=== PATIENT | male | born 1990 | race Caucasian/White ===

== ENCOUNTER 2019-01-25 18:27 | Inpatient (IN) ==
[2019-01-25] MEDS ORDERED: CLINDAMYCIN 900 MG in DEXTROSE 5% 100 ML IV ONE (18:42)
--- NOTE | 2019-01-25 19:32 | Emergency Department Note ---
Entered by Luis Silva acting as a scribe for History of Present Illness General Chief complaint: Infection Stated complaint: INFECTION, TRANSFER FROM [facility] Time Seen by Provider: 01/25/19 18:29 Source: patient, EMS and other (Transfer notes) Limitations: no limitations History of Present Illness Provider complaint: Right hand infection Onset (ago): hour(s) (12.5) Location: upper extremity (right wrist) and right Pain Consistency: + other (worsening pain, constant fever) Quality: + other (Fever/infection) Treatments prior to arrival: other (NSS, Fluid, vancomycin, Dilaudid, Zofran, Tylenol) The patient is a 28 year old diabetic male who presents to the Emergency Room via EMS from the [place] ER with complaints of worsening pain to his right hand/wrist and a fever that began this morning. The patient had his right ring finger amputated on 01/19, 6 days ago, here in [place] by Dr. Haddad. The patient has felt well since the procedure, aside from normal post-operative pain. He states that when he woke up this morning at 0600, 12.5 hours ago, he noticed the fever and significant "sharp" pain to the back of his right wrist. This pain was much worse than what he had been experiencing prior. He notes that when he checked the wrist/hand last night there was no redness. When he presented to the [place] ER today they removed the bandage there was redness and swelling over the hand and wrist. Dr. Haddad was contacted and the patient was referred here to the ED to be reevaluated. The patient adds that his heart was racing this morning and he did feel like he was breathing hard. He did vomit. He denies any acute shortness of breath. The patient has received 3 liters of fluid, 4.5 grams of Zosyn, 1 gram of IV-Vancomycin, as well as Dilaudid, Zofran, and 975 mg of Tylenol prior to arrival here. His laboratory studies today show a WBC of 20,000 and a Lactic Acid level of 7.8. Further laboratory results show hemoglobin of 15.2, platelet count of 449, creatinine of 1.27, potassium of 4.5, CRP of 12, and sed rate of 8. Home Medications Home Medications Medication Instructions Recorded Confirmed Type insulin glargine [Lantus U-100 40 unit SUBCUT HS 01/25/19 01/25/19 History Insulin] insulin lispro [Humalog U-100 See Rx Instructions .ROUTE .COMPLEX 01/25/19 01/25/19 History Insulin] omega 2-yfy-dyj-fish oil [Paradis-3] 1 cap PO QAM 01/25/19 01/25/19 History Allergies Allergy/AdvReac Type Severity Reaction Status Date / Time No Known Allergies Allergy Verified 01/25/19 19:07 Past Med/Surg History Medical History Amputation of right ring finger Diabetes Social History Communication Ability: Effective current occupational status: employed Feels Safe at Home: Yes Smoking Status: Never smoker Review of Systems See HPI for pertinent positives & negatives. and A total of 10 systems reviewed and were otherwise negative Physical Exam Vital Signs Vital Signs - 24 hr 01/25/19 18:27 01/25/19 18:38 01/25/19 18:42 Temperature 37.2 C Temperature Source Oral Sepsis Recent Fever Within 48 Hours Yes Sepsis New/Unexplained Change in Mental Status No Sepsis Action Taken by Nursing Physician Notified Pulse Rate 89 86 88 Pulse Rate from SpO2 Sensor 86 87 Pulse Rhythm Regular Pulse Strength Normal Respiratory Rate 18 16 20 Respiratory Effort / Characteristics Non-Labored Spontaneous Respiratory Depth Normal Respiratory Pattern Regular Blood Pressure 132/77 132/77 Blood Pressure Mean 95 95 Pulse Oximetry 98 98 97 Oxygen Delivery Method Room Air 01/25/19 19:00 Temperature Temperature Source Sepsis Recent Fever Within 48 Hours Sepsis New/Unexplained Change in Mental Status Sepsis Action Taken by Nursing Pulse Rate 87 Pulse Rate from SpO2 Sensor 86 Pulse Rhythm Pulse Strength Respiratory Rate 13 Respiratory Effort / Characteristics Respiratory Depth Respiratory Pattern Blood Pressure 121/69 Blood Pressure Mean 86 Pulse Oximetry 97 Oxygen Delivery Method GENERAL: Patient is in no acute distress. HEENT: No acute trauma, normocephalic atraumatic, mucous membranes moist, no nasal congestion, no scleral icterus. NECK: No stridor, no adenopathy, no meningismus, trachea is midline. LUNGS: Clear to auscultation bilaterally, no wheeze, no rhonchi, breath sounds equal. HEART: 2/6 systolic ejection murmur. Regular rate and rhythm. ABDOMEN: Soft, nontender, bowel sounds positive, no hernias, no peritonitis. EXTREMITIES: The right upper extremity is edematous, erythematous, and warm to the touch. Sutures are in place in the area where his 4th finger was amputated. The erythema tracks from the fingers mid-way up the forearm, mostly along the dorsal aspect. Patient is NVI distally in the right upper extremity. NEUROLOGIC: Oriented x 3, no acute motor or sensory deficits, no focal weakness. SKIN: No jaundice, no diaphoresis. Course 1829: The patient was evaluated in room B6, and a complete history and physical examination were performed. 1855: I discussed the case with Dr. Iggy BRANDON. She re-told the story to me today. 1899: I updated Dr. Haddad on the case. He will come to the ED to see the patient. 1915: I reviewed the patient's case with Dr. Petty [facility] Hospitalist. He will evaluate the patient for further management. Administered Medications Discontinued Medications Hydromorphone HCl (Dilaudid) Confirm Administered Dose 0.5 mg .ROUTE .STK-MED ONE Stop: 01/25/19 19:36 Last Admin: 01/25/19 19:36 Dose: 0.5 mg Documented by: [id number] Clindamycin Phosphate 900 mg/ (Dextrose) 106 mls @ 100 mls/hr IV ONE ONE Stop: 01/25/19 19:45 Last Admin: 01/25/19 19:16 Dose: 100 mls/hr Documented by: [id number] Medical Decision Making Differential Diagnosis Differential Diagnosis includes: Sepsis, bacteremia, cellulitis, wound infection, dehydration, electrolyte or metabolic abnormality, anemia, and renal failure. Medical Records Attestation: I reviewed the patient's medical records. Home Medications Current Medication List: was personally reviewed by me Laboratory Data Attestation: I reviewed the patient's lab results. Lab Results 01/25/19 01/25/19 Range/Units 18:45 19:11 POC Glucose 106 H (70-99) Lactate 2.8 H* (0.4-2.0) mmol/L Blood Pressure Blood Pressure Findings: Normal blood pressure MDM Narrative The patient presents from [place] for a right upper extremity wound infection. He did have his right fourth finger amputated on the , 6 days ago. He awoke this morning with pain, fever, vomiting and went to the [place] ED. Patient was diagnosed with sepsis. His white blood cell count was 20,000, his lactic acid level was elevated at over 7. He was tachycardic and febrile. The patient received IV vancomycin and IV Zosyn prior to arrival. He did receive Dilaudid for pain. He received around 3 L of fluid in total. On presentation to our ED, the patient looks comfortable. He is not tachycardic, he is not hypotensive. The right hand and forearm do appear to be cellulitic. There is some edema and warmth and erythema. The patient received IV clindamycin, 900 mg-this makes for triple antibiotic coverage. A stat BSG was done, the value was 106. Repeat lactic acid level was not done. The value was 2.8. This is significantly improved from the value obtained in [place]. I did speak with Dr. Haddad of orthopedics. I spoke with case management, I talked with the patient. Hospitalization is required. The on-call hospitalist was consulted. Impression & Plan Sepsis, Cellulitis of arm, right, Leukocytosis, Wound infection Discharge Plan Visit Data Chief Complaint: Infection Stated Complaint: INFECTION, TRANSFER FROM [facility] ED Provider: Drake Kebede Discharge Problem: Sepsis, Cellulitis of arm, right, Leukocytosis, Wound infection Patient Disposition: Being Evaluated by Hospitalist Forms Stand Alone Forms: My [facility] Prescriptions Prescriptions: No Action Lantus U-100 Insulin 100 unit/mL Solution 40 unit SUBCUT HS RF: 0 insulin lispro [Humalog U-100 Insulin] 100 unit/mL Solution See Rx Instructions .ROUTE .COMPLEX RF: 0 Paradis-3 350 mg-235 mg- 90 mg-597 mg Capsule,Delayed Release(Dr/Ec) 1 cap PO QAM RF: 0 Referrals Referrals: PCP,NO [Primary Care Provider] - Discharge Problem: Sepsis Qualifiers: Sepsis type: sepsis due to unspecified organism Qualified Code(s): A41.9 - Sepsis, unspecified organism Leukocytosis Qualifiers: Leukocytosis type: unspecified Qualified Code(s): D72.829 - Elevated white blood cell count, unspecified The scribe's documentation has been prepared under my direction and personally reviewed by me in its entirety. I confirm that the note above accurately reflects all work, treatment, procedures, and medical decision making performed by me.
[2019-01-25] MEDS ORDERED: HYDROmorphone INJ 0.5 MG/0.5 ML SYR ONE (19:35)
--- NOTE | 2019-01-25 19:46 | History & Physical Report ---
Date of Service January 25, 2019 Assessment & Plan (1) Sepsis: Sepsis/postop wound infection of right hand and arm-- Admit to medical telemetry bed. N.p.o. for procedure in the a.m. Sutures opened with culture performed by Dr. Yoder in the ED. Received 2 L normal saline in the ED. Placed on NSS + KCl 20 mEq at 200 mils per hour. Vancomycin IV and Zosyn IV. Follow wound culture and sensitivity. Acetaminophen 1 g IV every 8 hours as needed mild pain or temperature. Dilaudid 1 mg IV every 3 hours as needed severe pain. Present on Admission?: Yes (2) Cellulitis of arm, right: See above. Present on Admission?: Yes (3) Wound infection: See above. Present on Admission?: Yes (4) Diabetes mellitus type 1: Hold evening Lantus 42 units as patient will not be eating much tonight, and in prep for OR tomorrow. Place on Accu-Cheks before meals and at bedtime with NovoLog coverage per scale. Present on Admission?: Yes (5) GERD (gastroesophageal reflux disease): Placed on pantoprazole 40 mg IV daily. Present on Admission?: Yes History of Present Illness Chief Complaint: The patient [facility] to the ED [facility] s/p right 4th finger amputation by Dr. Yoder 6 days ago. Primary Care Provider: NO PCP The patient is a 28 yo male with a PMH including DM Type I , GERD, and Duputyren's contracture, s/p release x 2 , who underwent a right 4th finger amputation by Dr. Yoder 6 days ago, had been doing well until this morning, when he developed redness, pain and swelling of his right hand and wrist. [facility], was noted to be infected, and was transferred to [facility] at the request of for further treatment. The patient primaril complains of pain, with some nausea at this time. Allergies Allergy/AdvReac Type Severity Reaction Status Date / Time No Known Allergies Allergy Verified 01/25/19 19:07 Home Medications Home Medications Medication Instructions Recorded Confirmed Type insulin glargine [Lantus U-100 40 unit SUBCUT HS 01/25/19 01/25/19 History Insulin] insulin lispro [Humalog U-100 See Rx Instructions .ROUTE .COMPLEX 01/25/19 01/25/19 History Insulin] omega 2-cdn-kry-fish oil [[place]-3] 1 cap PO QAM 01/25/19 01/25/19 History Past Med/Surg History Medical History Amputation of right ring finger Diabetes Social History Preferred Language: Tam[place] Beliefs That Will Affect Care: None Current Living Situation: Family Current Living Situation Comment: with uncle current occupational status: employed Other Information That Helps Us Care for You: No Feels Safe at Home: Yes Safety Concerns: Feels Safe At This Time Smoking Status: Never smoker Hx Alcohol Use: Yes Review of Systems The patient denies chest pain, palpitations, shortness of breath, dyspnea on exertion, cough, lower extremity swelling, sore throat, sweats, weight change, nausea, vomiting, diarrhea , constipation, abdominal pain, pelvic pain, blood in urine or stool, dysuria, urinary frequency or urgency, lightheadedness, dizziness, headache, memory loss, loss of consciousness, imbalance, generalized arthralgias or myalgias, back or neck pain, or night sweats. The review of systems is otherwise negative other than for that already noted above, and at least 10 systems have been reviewed. Physical Exam Vital Signs (Past 24 Hours): Last Vital Signs Temp 37.2 C 01/25/19 18:27 Pulse 87 01/25/19 19:00 Resp 13 01/25/19 19:00 BP 121/69 01/25/19 19:00 Pulse Ox 97 01/25/19 19:00 Physical Exam: The patient is awake, alert and oriented 3, well developed and well nourished, normocephalic and atraumatic, lying in bed and in no acute distress. HEENT--PERRL, EOMI, mucous membranes and oropharynx dry. Neck--supple. No JVD. No bruits. Thyroid normal, trachea midline, no adenopathy. Heart--normal S1 and S2. No murmurs, rubs or gallops. Lungs--clear bilaterally, no respiratory distress, no accessory muscle use. Abdomen--normal bowel sounds and soft. Nontender. Nondistended, no hernias or masses, no organomegaly. Extremities--no cyanosis or clubbing. No edema. Right upper extremity status post right fourth finger amputation with erythema extending from surgical site on dorsum of hand and wrist to distal forearm Dermatologic--normal skin turgor, normal color, no abnormal lymph nodes, no rash. Neurologic--cranial nerves II through XII grossly intact. Rheumatologic--normal range of motion. Psychiatric--normal affect. Results & Data Laboratory Results Laboratory Results Creatinine 0.94 mg/dl (0.6-1.4) 01/25/19 21:54 Est Cr Clr Drug Dosing 130.7 ml/min 01/25/19 21:54 Est GFR ( Amer) 129.2 01/25/19 21:54 Est GFR (Non-Af Amer) 111.5 01/25/19 21:54 POC Glucose 71 (70-99) 01/25/19 21:31 Lactate 2.8 mmol/L (0.4-2.0) H* 01/25/19 19:11 Code Status & VTE Plan Code Status Full code VTE Prophylaxis Plan VTE Prophylaxis will be ordered: Yes (1) Sepsis Sepsis type: sepsis due to unspecified organism Qualified Code(s): A41.9 - Sepsis, unspecified organism
[2019-01-25] MEDS ORDERED: ONDANSETRON INJ 2 MG/ML 2 ML VIAL ONE (21:02)
[2019-01-25] MEDS ORDERED: PIPERACILL/TAZOBAC CONSULT ACTIVE PRN (21:25)
[2019-01-25] MEDS ORDERED: ZOLPIDEM TARTRATE 5 MG TAB PO PRN (21:25)
[2019-01-25] MEDS ORDERED: DEXTROSE 50% 50 ML SYRINGE IV PRN (21:25)
[2019-01-25] MEDS ORDERED: LANTUS PER UNIT CHARGE SQ SCH (21:25)
[2019-01-25] MEDS ORDERED: GLUCOSE 40% GEL 15 GM TUBE PO PRN (21:25)
[2019-01-25] MEDS ORDERED: INSULIN ASPART 100 UNITS/ML 3 ML PEN SC SCH (21:25)
[2019-01-25] MEDS ORDERED: DiphenhydrAMINE HCL 50 MG/ML VIAL IV PRN (21:25)
[2019-01-25] MEDS ORDERED: VANCOMYCIN CONSULT ACTIVE PRN (21:25)
[2019-01-25] MEDS ORDERED: GLUCAGON FOR INJ 1 MG VIAL SQ PRN (21:25)
[2019-01-25] MEDS ORDERED: VANCOMYCIN HCL 1,000 MG in SODIUM CHLORIDE 0.9% 250 ML IV SCH (21:25)
[2019-01-25] MEDS ORDERED: VANCOMYCIN HCL 2,000 MG in SODIUM CHLORIDE 0.9% 500 ML IV SCH (22:00)
[2019-01-25] MEDS ORDERED: PIPERACILLIN/TAZOBACTAM 4.5 GM in DEXTROSE 5% 100 ML IV SCH (22:00)
[2019-01-25] MEDS: ACETAMINOPHEN 325 MG TAB PO PRN (22:06)
[2019-01-25] MEDS: NSS + 20MEQ KCL 20 MEQ/1,000 ML BAG IV SCH (22:23)
[2019-01-25 22:27] LABS: Creatinine Clr Calc Pharmacy 130.7 ml/min; Est GFR (African American) 129.2; Est GFR (Non-African American) 111.5
[2019-01-25] MEDS: ACETAMINOPHEN 1,000 MG/100 ML VIAL IV PRN (23:28)
--- NOTE | 2019-01-26 01:45 | Consultation Report ---
DATE OF CONSULTATION: 01/25/2019 Special attention to right hand. HISTORY OF PRESENT ILLNESS: This is a 28-year-old gentleman who is known to me. I performed a ray amputation approximately 6 days ago. He woke up this morning with increasing pain and swelling in the hand. This began without any incident or trauma. He did note increasing fever and chills and increasing nausea and vomiting. He called our office and we recommended he go to the nearest Emergency Department. He went to the [place] Emergency Department. He was diagnosed with infection and sepsis. I requested transfer to [facility] for further care. The patient does meet sepsis criteria. MEDICATIONS: Include Lantus, Humalog, and fish oil. ALLERGIES: No known allergies. PAST MEDICAL HISTORY: Diabetes, history of recent amputation for recurrent Dupuytren's disease. PHYSICAL EXAMINATION: EXTREMITIES: Right hand exam does show significant swelling in the dorsal aspect of the hand. Redness is seen suspicious for infection. He is tender over the infection site. He can flex and extend the wrist with moderate discomfort. He has negative [place] signs. Minimal volar swelling. He does have some streaking erythema which is improved compared to the prior gonzalez made in [place] ER. LABORATORY STUDIES: White count 20. Lactic acid 7.8 at [facility] Emergency [facility]. Current white count at [facility] is 2. Sed rate 8, CRP 12. ASSESSMENT: 1. Right hand infection and abscess. 2. Diabetes. PLAN: I discussed findings and treatment with him. We will admit to the hospitalist service under telemetry and monitor vital signs for sepsis. His vital signs are stabilized in the interim with fluids and antibiotics. He was given Zosyn in the Emergency Department in [place]. Vancomycin was added here. I examined his surgical incision and it is currently clean and dry. I popped 3 of the dorsal stitches and this did express a moderate amount of pus. This did help to decompress the wound and there were also improvements in his pain. We will plan for definitive irrigation and debridement with likely application of VAC sponge shortly. Risks and benefits of surgery were discussed including, but not limited to, infection, stiffness, loss of motion, failure to improve, etc. Plan for surgical intervention shortly.
[2019-01-26] MEDS: PIPERACILLIN/TAZOBACTAM 3.375 GM in DEXTROSE 5% 100 ML IV SCH ×3 (01:58→18:42)
[2019-01-26] MEDS ORDERED: NURSING DECISION MEDICATION ONE (02:18)
[2019-01-26] MEDS: NSS + 20MEQ KCL 20 MEQ/1,000 ML BAG IV SCH ×3 (03:01→19:36)
[2019-01-26] MEDS: VANCOMYCIN HCL 1,250 MG in SODIUM CHLORIDE 0.9% 250 ML IV SCH ×3 (05:59→20:26)
[2019-01-26] MEDS ORDERED: INSULIN ASPART 100 UNITS/ML 3 ML PEN SC SCH ×2 (06:00→13:00)
[2019-01-26] MEDS ORDERED: PHARMACY GLYCEMIC MGMT CONSULT PRN (07:49)
[2019-01-26 08:30] LABS: Basophils # (auto) 0.02 K/uL (0-0.2); Basophils % (auto) 0.1 %; Eosinophils # (auto) 0.24 K/uL (0-0.5); Eosinophils % (auto) 1.5 %; Hemoglobin 12.7 g/dL (14.0-18.0); Immature Granulocytes # (auto) 0.04 K/uL (0.00-0.02); Immature Granulocytes % (auto) 0.2 %; Lymphocytes % (auto) 11.9 %; Mean Corpuscular Hgb Conc 33.4 g/dL (32-36); Mean Corpuscular Volume 82.8 fL (80-100); Mean Platelet Volume 10.2 fL (7.4-10.4); Monocytes # (auto) 1.54 K/uL (0.11-0.59); Monocytes % (auto) 9.6 %; Neutrophils # (auto) 12.29 K/uL (1.4-6.5); Neutrophils % (auto) 76.7 %; Platelet Count 332 K/uL (130-400); RDW Standard Deviation 42.4 fL (36.4-46.3); Red Blood Count 4.59 M/uL (4.7-6.1); White Blood Count 16.03 K/uL (4.8-10.8)
[2019-01-26 08:49] LABS: BUN Creatinine Ratio 12.5 (10-20); Calcium 7.9 mg/dl (8.5-10.1); Creatinine Clr Calc Pharmacy 120.5 ml/min; Magnesium 2.2 mg/dl (1.8-2.4); Potassium 4.1 mmol/L (3.5-5.1)
[2019-01-26] MEDS ORDERED: INSULIN HUMAN REGULAR IV BOLUS 2 UNITS in SYRINGE 0 ML IV SCH (09:45)
[2019-01-26] MEDS ORDERED: INSULIN GLARGINE SOLOSTAR 100 UNITS/ML 3 ML PEN SC SCH (10:00)
[2019-01-26] MEDS ORDERED: INSULIN REGULAR 250 UNITS in SODIUM CHLORIDE 0.9% 247.5 ML IV SCH (10:00)
[2019-01-26] MEDS: ACETAMINOPHEN 1,000 MG/100 ML VIAL IV PRN (10:17)
[2019-01-26] MEDS ORDERED: ALUMINUM/MAGNESIUM SUSP 30 ML UDC PO PRN (10:35)
[2019-01-26] MEDS ORDERED: VANCOMYCIN TROUGH ONE ×2 (12:30→19:30)
--- NOTE | 2019-01-26 13:22 | Hospitalist Progress Note ---
Date of Service January 26, 2019 Assessment & Plan (1) Wound infection: Had a ray amputation of his right 4th finger on 01/19 at Counts include [facility] beds at the [facility]. Done due to issues with Dupuytren's contractures. Post-op wound infection of right hand and arm. - Sutures opened with culture performed by Dr. Haddad in the ED - Plan for I&D on 01/26 - Continue vancomycin IV and Zosyn IV - Follow wound culture and sensitivity - Pain and fever control (2) Cellulitis of arm, right: - See above. (3) Sepsis: On admission, he had SIRS 2/4 with known source. - Resolving on abx therapy (4) Diabetes mellitus type 1: No known A1c. On admission, evening Lantus 42 units was held; however, as a Type 1 diabetic, he has to have long-acting to prevent ketoacidosis. - Placed on insulin gtt on 01/26 as he is NPO, blood sugars are getting out of control, and we are worried about complications. - Glycemic consult following - A1c in the morning (5) GERD (gastroesophageal reflux disease): - Placed on pantoprazole 40 mg IV daily. (6) DVT prophylaxis: SCDs Subjective 28yo w/ DM1 and hand infection who presents with worsening hand infection. Pretty discouraged from his continued hand infection. Reports no fevers/chills, chest pain, shortness of breath, abdominal pain, nausea, or vomiting. Review of Systems Constitutional: no fever, no chills and no sweats Eyes: no diplopia Ear, Nose, Mouth, Throat: no ear trauma, no nasal discharge and no dental pain Respiratory: no cough, no chest congestion and no dyspnea Cardiovascular: no chest pain, no dyspnea on exertion, no palpitations and no syncope Gastrointestinal: no abdominal pain, no belching, no constipation, no diarrhea/loose stools, no blood in stools and no melena Musculoskeletal: no back pain, no joint pain and no muscle weakness Integumentary: no rash, no skin ulcer and no erythema Neurologic: no generalized weakness, no loss of sensation, no numbness and no paresthesia Psychiatric: no depression and no anxiety Endocrine: no fatigue, no polydipsia and no polyphagia Physical Exam Constitutional: WD/WN, vitals as above Eyes: EOM intact bilaterally; no conjunctival abnormality ENMT: external ear and nose normal, oropharynx normal Neck: trachea midline, no thyromegaly normal visual inspection Respiratory: normal respiratory effort, lungs clear to auscultation no respiratory distress Cardiovascular: RRR, no murmur, no edema Gastrointestinal (Abdomen): Inspection/Auscultation: abdomen normal to inspection; abdomen not distended Musculoskeletal: no cyanosis or clubbing, extremities motor strength 5/5 Skin: Right hand bandaged with minimal erythema past bandage Neurologic: moves all extremities and awake Psychiatric: Orientation: alert, oriented to person and cooperative Results & Data Vital Signs (Past 12 Hours) Vital Signs Temp Pulse Resp BP Pulse Ox 01/26/19 11:04 37.0 C 73 16 106/59 L 96 01/26/19 07:18 36.5 C 78 16 115/68 96 01/26/19 03:38 36.5 C 79 18 98/59 L 97 (1) Sepsis Sepsis type: sepsis due to unspecified organism Qualified Code(s): A41.9 - Sepsis, unspecified organism
--- NOTE | 2019-01-26 15:00 | Pharmacy Report ---
Glycemic Control Consultation - Date of Service January 26, 2019 - Scope Scope: Glycemic Pharmacist consulted for glycemic control and to write orders per [facility] inpatient glycemic control protocol - Objective Weight: 90.1 kg Accuchecks BSG (last 24hrs): 01/25/19 01/25/19 01/26/19 18:45 21:31 05:54 Glucose POC Glucose 106 H 71 285 H 01/26/19 08:03 Glucose 280 H POC Glucose Laboratory Data (last 24hrs): 01/25/19 01/26/19 21:54 08:03 Potassium 4.1 Carbon Dioxide 22 Anion Gap 7.0 Creatinine 0.94 1.02 Est Cr Clr Drug Dosing 130.7 120.5 - Recent Pertinent Medications Outpatient Anti-diabetic Regimen: * Discussed with patient and confirmed the following * Lantus 40 units SC HS * Humalog AC - correction factor of 30 mg/dL/unit above BSG of 130 mg/dL, carb ratio of 6 g CHO/unit * A1c pending for tomorrow Risk Factors for Insulin Resistance: * Steroids: * Infection: Sepsis 2nd post-op wound infection/cellulitis * Recent Surgery: Plan for I&D today * Diet: NPO - Assessment & Plan Assessment & Plan: ASSESSMENT: * 28 yo M with TYPE 1 diabetes admitted with sepsis 2nd post-op wound infection * Home Lantus dose held last night for NPO status and possible intervention, but this can quickly precipitate DKA for a patient with Type 1 diabetes. CO2 wnl this AM, but BSG trended up rapidly from 71 mg/dL yesterday evening to 285 mg/dL this AM * Based on a delay in basal insulin x12 hours and therefore basal deficiency, will not be able to adequately control BSG's in the immediate preop period without a drip. Spoke w Dr. Oliver who agreed with starting a drip * Would normally decrease basal insulin dose to 80% of outpatient dose for a Type 1 diabetes patient for NPO status. However, will not do so at this time 2nd basal deficiency (which would usually necessitate a higher that outpatient dose). OK to give outpatient Lantus dose now. Will attempt to transition back to HS dosing gradually * Criteria for insulin drip transition * Insulin drip rate less than 1.0 units/hr * BSG in goal range x2 consecutive checks * Once patient meets criteria for drip transition, will resume home rapid-acting insulin regimen with 2 overnight checks PLAN FOR INPATIENT GLYCEMIC CONTROL: * Starting IV insulin infusion per moderate stress protocol * Goal Range 120 - 180 mg/dl * In the critical care setting, continuous IV insulin infusion has been shown to be the best method for achieving glycemic targets. * Basal insulin * Lantus 40 units SQ x1 now * Bolus insulin * NovoLog per scale ACHS depending on CHO ratio per insulin drip calculator * Please note that the plan above was derived based on current level of insulin resistance and hospital stress. These recommendations are appropriate for inpatient admission only. Plan of care upon discharge will need to be reassessed to avoid potential outpatient hypo/hyperglycemia. Thank you.
--- NOTE | 2019-01-26 15:02 | Anesthesiology Consultation ---
Date of Service January 26, 2019 Assessment & Plan Chart Review Chart Review: Acceptable Risk for Surgery and Patient NOT seen in Pre Admission Testing Consults Requested none ASA ASA3 Proposed Anesthesia Anesthesia Type: General Regional Regional Laterality: Right Site: Supraclavicular Risk / Benefits Reviewed With: PT / POA / Parent / Guardian, Accepts Plan and Informed Consent Obtained NPO Date Last Intake of Fluids: 01/25/19 Time Last Intake of Fluids: 23:59 Date Last Intake of Solids: 01/25/19 Time Last Intake of Solids: 23:59 Last Intake of Solids Comment: NPO at midnight History Surgery Operation Date: 01/26/19 14:00 Proposed Procedures p Incision and Drainage Extremity(Right) - Pedro Haddad MD Height/Weight Height: 6 ft Weight: 90.1 kg Allergies Allergy/AdvReac Type Severity Reaction Status Date / Time No Known Allergies Allergy Verified 01/26/19 14:55 Medications Home Medications Medication Instructions Recorded Confirmed Last Taken insulin glargine [Lantus U-100 40 unit SUBCUT HS 01/25/19 01/25/19 01/24/19 Insulin] insulin lispro [Humalog U-100 See Rx Instructions .ROUTE .COMPLEX 01/25/19 01/25/19 01/25/19 Insulin] AM DOSE - 3 UNITS omega 1-rxr-ppn-fish oil [[place]-3] 1 cap PO QAM 01/25/19 01/25/19 01/25/19 Active Medications Generic Name Dose Route Start Last Admin Trade Name Freq PRN Reason Stop Dose Admin Acetaminophen 650 mg 01/25/19 21:25 01/25/19 22:06 Tylenol PO 02/24/19 21:24 650 mg Q4H PRN Administration Pain or Fever Al Hydrox/Mg Hydrox/Simethicone 30 ml 01/26/19 10:35 01/26/19 10:51 Maalox PO 02/25/19 10:34 30 ml Q6H PRN Administration Heartburn Acetaminophen 1,000 mg in 100 mls @ 400 mls/hr 01/25/19 21:25 01/26/19 10:37 Ofirmev IV 02/24/19 21:24 Infused Q8H PRN Infusion Pain or Fever Potassium Chloride/Sodium Chloride 20 meq in 1,000 mls @ 75 mls/hr 01/25/19 21:45 01/26/19 12:10 Normal Saline W/20 Meq Kcl IV 02/24/19 21:44 75 mls/hr .[id number] HERVE Infusion Piperacillin Sod/Tazobactam 115 mls @ 28.75 mls/hr 01/26/19 02:00 01/26/19 14:55 Sod 3.375 gm/ Dextrose IV 03/09/19 01:59 Infused Q8H HERVE Infusion Protocol Vancomycin HCl 1,250 mg/ 275 mls @ 125 mls/hr 01/26/19 06:00 01/26/19 13:05 Sodium Chloride IV 03/09/19 05:59 125 mls/hr Q7H HERVE Administration Insulin Human Regular 250 250 mls @ 2.2 mls/hr 01/26/19 10:00 01/26/19 10:53 units/ Sodium Chloride IV 02/25/19 09:59 2.2 units/hr .Q24H HERVE 2.2 mls/hr Administration Protocol 2.2 UNITS/HR Insulin Aspart 0 units 01/26/19 13:00 01/26/19 13:05 Novolog Flexpen SC 02/25/19 12:59 [facility] Past Medical History Medical History Amputation of right ring finger Diabetes Past Anesthesia History No Hx of Anesthesia Complications and No Family Hx of Anesthesia Complications History of PONV No Motion Sickness Screening History of Motion Sickness: No Social History Smoking Status: Never smoker Hx Alcohol Use: Yes alcohol intake frequency: holidays/special occasions only Exercise / Class Metabolic Activity II 4-5 Yardwork/Stairs/Walk up hill Physical Exam Vital Signs Last Vital Signs Temp 37.0 C 01/26/19 11:04 Pulse 73 01/26/19 11:04 Resp 16 01/26/19 11:04 BP 106/59 L 01/26/19 11:04 Pulse Ox 96 01/26/19 11:04 ENMT Mouth: no dentition abnormality Thyromental Distance: > or= 3.5 Finger Breadths Mallampati Class: II Neck normal visual inspection and + tracheal deviation; neck extension not limited Respiratory normal respiratory effort Auscultation: lungs clear to auscultation bilaterally Cardiovascular Rate/Rhythm: regular rate and regular rhythm Heart Sounds: no murmur Musculoskeletal Spine: normal cervical ROM Neurologic moves all extremities Motor/Sensory: no sensory deficit Psychiatric Orientation: alert and oriented x 3 Testing Laboratory Results 01/26/19 08:03 01/26/19 08:03 01/25/19 20:20 Gram Stain - Final Hand,Right Wound Culture - Preliminary Staphylococcus aureus 01/26/19 05:54 POC Glucose 285 H
--- NOTE | 2019-01-26 15:06 | Pharmacy Report ---
Pharmacy Abx Dose Short Note - Date of Service January 26, 2019 - Assessment & Plan Assessment * 28 year old M with sepsis 2nd post-op wound infection/cellulitis growing S. aureus (sensitivities pending) * Currently on Zosyn and vancomycin. Appropriate for now * Anticipate rapid clearance of vancomycin 2nd gender and young age * SCr may be slightly higher than usual for age. I suspect this is not reflective of renal dysfunction but rather increased *production* of creatinine from large muscle mass Vancomycin * Goal vancomycin trough 15-20 mcg/mL * Trough of 13.8 mcg/mL is slightly subtherapeutic. However, this was obtained prior to steady state and therefore anticipate accumulation given the tight interval selected for maintenance dosing for this patient (q7h) * OK to continue current dose for now but will re-check an early level to ensure level does indeed increase to therapeutic levels Plan * Continue vancomycin 1250 mg IV q7h * Trough 01/27 @ 0230 Pharmacy will continue to follow and will adjust dose/frequency as necessary. Thank you.
[2019-01-26] MEDS ORDERED: BUPIVACAINE 0.25% 30 ML VIAL ONE (15:40)
[2019-01-26] MEDS ORDERED: BACITRACIN INJ 50,000 UNIT VIAL ONE (15:41)
[2019-01-26] MEDS ORDERED: MIDAZOLAM HCL 1 MG/ML 2ML VIAL ONE (15:42)
[2019-01-26] MEDS ORDERED: fentaNYL citrate 100 MCG/2 ML VIAL ONE ×2 (15:43→16:41)
--- NOTE | 2019-01-26 15:46 | History & Physical Bridge Note ---
Date of Service January 26, 2019 History & Physical Bridge Note I have examined the patient, reviewed the History & Physical and in the interval since the performance of the History & Physical I have noted the following changes of clinical significance: no changes noted I saw the patient in preoperative holding area we discussed risk benefits possible outcomes and expectations will plan for 1. Right hand irrigation and debridement
[2019-01-26] MEDS ORDERED: [UNRECOGNIZED DRUG - OTHER] SCH (16:00)
[2019-01-26] MEDS ORDERED: LIDOCAINE HCL 2% 2 ML VIAL/AMP(20MG/ML) INFIL ONE (16:40)
[2019-01-26] MEDS ORDERED: PROPOFOL IV EMULSION 10 MG/ML 20 ML VIAL IV ONE (16:40)
[2019-01-26] MEDS ORDERED: GLYCOPYRROLATE 0.2 MG/ML VIAL ONE (16:40)
[2019-01-26] MEDS ORDERED: ONDANSETRON INJ 2 MG/ML 2 ML VIAL ONE (16:40)
[2019-01-26] MEDS ORDERED: NEOSTIGMINE METHYLSULFATE 5 MG/5 ML SYR ONE (16:40)
--- NOTE | 2019-01-26 17:04 | Post Operative Brief Note ---
Immediate Post Op Note v1 Date of Surgery January 26, 2019 Pre & Post Diagnosis Operation Date: 01/26/19 14:00 Pre-Op Diagnosis: infection right hand Post-Op Diagnosis: infection right hand Procedure Operation Date: 01/26/19 14:00 Actual Procedures p Incision and Drainage right hand and application of wound vac (Right) - Gonzalezi kip Haddad MD Surgeon Pedro Haddad MD Cloth Doubling Machine Operator none Estimated Blood Loss 5 Findings Consistent with Post-Op Diagnosis
[2019-01-26] MEDS ORDERED: PROMETHAZINE HCL 12.5 MG in SODIUM CHLORIDE 0.9% 50 ML IV PRN (17:28)
[2019-01-26] MEDS ORDERED: LABETALOL HCL IV 5 MG/ML 20ML IV PRN (17:28)
[2019-01-26] MEDS ORDERED: ONDANSETRON INJ 2 MG/ML 2 ML VIAL IV PRN (17:28)
[2019-01-26] MEDS ORDERED: ATROPINE SULFATE 0.1 MG/ML 10ML SYR IV PRN (17:28)
[2019-01-26] MEDS ORDERED: FLUMAZENIL 0.1 MG/1 ML 10 ML VIAL IV PRN (17:28)
[2019-01-26] MEDS ORDERED: NALOXONE HCL 0.4 MG/1 ML VIAL/CARP IV PRN (17:28)
[2019-01-26] MEDS ORDERED: ePHEDrine sulfate 50 MG/ML AMP IV PRN (17:28)
[2019-01-26] MEDS: HYDROmorphone INJ 1 MG/ML SYRINGE IV PRN ×3 (17:33→17:47)
--- NOTE | 2019-01-26 18:05 | Anesthesiology Progress Note ---
Date of Service January 26, 2019 Anesthesia Post Procedure Vital Signs Vital Signs: Temp Pulse Pulse Pulse Resp BP BP 01/26/19 17:50 78 14 118/63 01/26/19 17:40 76 12 120/67 01/26/19 17:30 84 19 113/66 01/26/19 17:20 79 15 115/63 01/26/19 17:12 36.8 C 77 16 110/59 L 01/26/19 11:04 37.0 C 73 16 106/59 L 01/26/19 07:18 36.5 C 78 16 115/68 01/26/19 03:38 36.5 C 79 18 98/59 L 01/25/19 23:56 93 H 01/25/19 23:00 36.3 C L 94 H 18 131/79 01/25/19 21:50 37 C 18 137/82 01/25/19 20:00 88 12 132/69 01/25/19 19:20 86 15 121/69 01/25/19 19:00 87 13 121/69 01/25/19 18:42 88 20 01/25/19 18:38 86 16 132/77 01/25/19 18:27 37.2 C 89 18 132/77 Pulse Ox 01/26/19 17:50 96 01/26/19 17:40 98 01/26/19 17:30 100 01/26/19 17:20 100 01/26/19 17:12 100 01/26/19 11:04 96 01/26/19 07:18 96 01/26/19 03:38 97 01/25/19 23:56 01/25/19 23:00 98 01/25/19 21:50 100 01/25/19 20:00 97 01/25/19 19:20 98 01/25/19 19:00 97 01/25/19 18:42 97 01/25/19 18:38 98 01/25/19 18:27 98 Pain Intensity Right Finger: Pain Intensity: 5 Notes Mental Status: alert / awake / arousable Patient Amnestic to Procedure: Yes Nausea / Vomiting: adequately controlled Pain: adequately controlled Airway Patency, RR, SpO2: stable & adequate BP & HR: stable & adequate Hydration State: stable & adequate Anesthetic Complications: no major complications apparent
[2019-01-26] MEDS: INSULIN ASPART 100 UNITS/ML 3 ML PEN SC SCH ×2 (19:33→21:55)
[2019-01-26] MEDS: ACETAMINOPHEN 325 MG TAB PO PRN (21:59)
[2019-01-27] MEDS: PIPERACILLIN/TAZOBACTAM 3.375 GM in DEXTROSE 5% 100 ML IV SCH ×2 (02:04→10:34)
[2019-01-27] MEDS: HYDROmorphone INJ 1 MG/ML SYRINGE IV PRN ×3 (02:09→16:19)
[2019-01-27] MEDS ORDERED: VANCOMYCIN TROUGH ONE (02:30)
[2019-01-27] MEDS: VANCOMYCIN HCL 1,250 MG in SODIUM CHLORIDE 0.9% 250 ML IV SCH ×2 (02:31→10:34)
[2019-01-27 02:46] LABS: Hematocrit (blood only) 34.2 % (42-52); Hemoglobin 11.4 g/dL (14.0-18.0); Mean Corpuscular Hgb Conc 33.3 g/dL (32-36); Mean Corpuscular Volume 83.2 fL (80-100); Mean Platelet Volume 9.8 fL (7.4-10.4); Platelet Count 338 K/uL (130-400); RDW Coefficient of Variation 14.2 % (11.5-14.5); RDW Standard Deviation 43.3 fL (36.4-46.3); Red Blood Count 4.11 M/uL (4.7-6.1); White Blood Count 16.32 K/uL (4.8-10.8)
[2019-01-27 02:59] LABS: BUN Creatinine Ratio 11.4 (10-20); Calcium 7.8 mg/dl (8.5-10.1); Creatinine Clr Calc Pharmacy 155.5 ml/min; Est GFR (African American) 143.6; Est GFR (Non-African American) 123.9; Magnesium 2.2 mg/dl (1.8-2.4); Potassium 3.5 mmol/L (3.5-5.1)
[2019-01-27 03:19] LABS: Phosphorus 1.5 mg/dl (2.5-4.9)
[2019-01-27 06:18] LABS: Estimated Average Glucose 255 mg/dl; Hemoglobin A1C 10.5 % (4.5-5.6)
--- NOTE | 2019-01-27 07:58 | Operative Report ---
DATE OF OPERATION: 01/25/2019 PREOPERATIVE DIAGNOSIS: Right hand infection. POSTOPERATIVE DIAGNOSIS: Right hand infection. PROCEDURES: 1. Right hand irrigation and debridement of infection. 2. Right hand application of VAC sponge. SURGEON: Waqar Haddad MD [employer] SKIN: None. ANESTHESIA: General. INDICATIONS: This is a gentleman who is approximately 7 days status post ray amputation, presents with increasing pain and swelling in the hand and sepsis. He presents for irrigation and debridement with application of VAC. The risks and benefits have been discussed including, but not limited to, risk of infection, nerve injury, stiffness, loss of motion, failure to improve, etc. Reasonable outcomes and options of treatment were discussed. An explanation of appropriate alternatives to the procedure that may be advantageous were discussed and their risks and benefits, as well as the risks and benefits of not proceeding with treatment. I offered to answer any additional inquiries concerning the treatment involved. All the patient's questions were answered. The patient is agreeable, understanding of the treatment plan and alternatives, and wishes to proceed with the treatment plan. DESCRIPTION OF PROCEDURE: The patient's open wound was inspected. I removed dorsal stitches and left the volar stitches intact. Very small amount of gross purulence was encountered, mostly in the superficial region. I performed a debridement of skin, subcutaneous tissue and bone, removing any devitalized muscle fascia and subcutaneous tissue. I debrided the bone as well with a curette. There did not appear to be any osteomyelitis or evidence of flexor tenosynovitis. There was no infection of the flexor tendon system. Area was copiously irrigated with 3 liters of bacitracin impregnated normal saline initially with pulse lavage. A tourniquet was let down, hemostasis was obtained with bipolar cautery. The area was then inspected and debridement did result in a clean wound. Debridement area was approximately a 2 x 4 cm. I then closed the distal aspect of the dorsal incision and the left 1-inch area of the proximal incision open. I placed a VAC sponge, a single piece into the wound and this was tunneled slightly under the incision. The VAC was applied and this was placed on suction without significant leak. The patient was placed in a soft dressing over the VAC sponge and the patient was sent to PACU in stable condition. Postoperative plan will be continued antibiotics, monitor cultures which do show staph aureus infection. I attest to the content of the Intraoperative Record and any orders documented therein. Any exceptions are noted below. MTDD
--- NOTE | 2019-01-27 08:39 | Infectious Disease Consult ---
Date of Consultation January 27, 2019 Assessment & Plan (1) Cellulitis of arm, right: Patient with right hand and arm infection following fourth finger amputation with staph aureus, sensitivities pending. Would continue patient on IV vancomycin pending sensitivity results. Will adjust antibiotics once these are available. Will follow. (2) Wound infection: (3) Staph aureus infection: History of Present Illness Reason for Consultation: Hand infection Attending Physician: Fermin Oliver MD History of Present Illness 28-year-old male with history of diabetes mellitus underwent amputation of right ring finger January 19 at [facility]. Subsequently developed progressively worsening redness, swelling, and pain with fever and chills and was brought back to the hospital for wound infection. He is now undergone surgical debridement and placement of wound VAC. Cultures now growing staph aureus, sensitivities are pending. Patient currently being treated with vancomycin and Zosyn. Tolerating without apparent difficulty. Has been afebrile. Allergies Allergy/AdvReac Type Severity Reaction Status Date / Time No Known Allergies Allergy Verified 01/26/19 14:55 Home Medications Home Medications Medication Instructions Recorded Confirmed Type insulin glargine [Lantus U-100 40 unit SUBCUT HS 01/25/19 01/25/19 History Insulin] insulin lispro [Humalog U-100 See Rx Instructions .ROUTE .COMPLEX 01/25/19 01/25/19 History Insulin] omega 4-syg-twf-fish oil [[place]-3] 1 cap PO QAM 01/25/19 01/25/19 History Patient History Medical History Amputation of right ring finger Diabetes Social History Preferred Language: French Communication Ability: Effective Beliefs That Will Affect Care: None marital status: Single Current Living Situation: Family Current Living Situation Comment: with uncle current occupational status: employed Other Information That Helps Us Care for You: No Feels Safe at Home: Yes Safety Concerns: Feels Safe At This Time Smoking Status: Never smoker Hx Alcohol Use: Yes Review of Systems Review of Systems: All systems were reviewed and are negative except as per HPI Physical Exam Constitutional: WD/WN, vitals as above comfortable; no acute distress Eyes: PERRL, conjunctivae normal, anicteric sclerae ENMT: external ear and nose normal, oropharynx normal Neck: trachea midline, no thyromegaly neck nontender Respiratory: normal respiratory effort, lungs clear to auscultation normal percussion; does not use accessory muscles Cardiovascular: Rate/Rhythm: regular rate and regular rhythm Heart Sounds: normal S1 and normal S2; no gallop, no murmur and no cardiac rub Vessels: normal peripheral pulses; no JVD Gastrointestinal (Abdomen): normal bowel sounds, soft, nontender, no hepatosplenomegaly Musculoskeletal: no cyanosis or clubbing, extremities motor strength 5/5 Spine: thoracic spine normal to inspection and lumbar spine normal to inspection; no cervical spinal tenderness Skin: no rashes, warm and dry normal turgor Surgical dressing in place right hand, no significant erythema above dressing Neurologic: patellar DTR's 2+ bilat, sensation intact no focal motor deficits Psychiatric: A+Ox3, euthymic affect Orientation: cooperative Lymphatic: no cervical or axillary lymphadenopathy no inguinal lymphadenopathy Results & Data Vital Signs (Past 12 Hours) Vital Signs Temp Pulse Pulse Resp BP Pulse Ox 01/27/19 06:54 36.6 C 85 18 106/62 95 01/27/19 01:59 37.5 C 84 16 117/70 95 01/26/19 23:03 36.7 C 79 18 110/71 100 Laboratory Results Short CBC 01/27/19 Range/Units 02:22 WBC 16.32 H (4.8-10.8) K/uL Hgb 11.4 L (14.0-18.0) g/dL Hct 34.2 L (42-52) % Plt Count 338 (130-400) K/uL [facility] 01/26/19 01/27/19 08:03 02:22 Sodium 140 140 Potassium 4.1 3.5 Chloride 111 H 112 H Carbon Dioxide 22 25 BUN 13 9 Creatinine 1.02 0.79 Glucose 280 H 86 Calcium 7.9 L 7.8 L Diagnostic Findings Microbiology 01/26/19 Unknown Hand,Right Gram Stain - Final 01/25/19 20:20 Hand,Right Gram Stain - Final 01/25/19 20:20 Hand,Right Wound Culture - Preliminary Staphylococcus aureus
[2019-01-27] MEDS: INSULIN ASPART 100 UNITS/ML 3 ML PEN SC SCH ×4 (09:16→20:47)
--- NOTE | 2019-01-27 11:08 | Pharmacy Report ---
Pharmacy Abx Dose Short Note - Date of Service January 27, 2019 - Assessment & Plan Assessment 28 year old M receiving Vanc/Zosyn for treatment of sepsis 2nd post-op wound infection/cellulitis growing S. aureus Day # 3 of antimicrobial therapy Plan Vancomycin * Trough level of 13.6 mcg/mL is subtherapeutic * Increase dose to 1500 mg IV every 7 hours as patient is rapidly clearing vancomycin (possibly 2nd gender and young age) * Goal trough level: 15 to 20 mcg/mL * Trough level ordered for: 01/28 @0630 Pharmacy will continue to follow and will adjust dose/frequency as necessary. Thank you.
--- NOTE | 2019-01-27 11:49 | Orthopedic Progress Note ---
Date of Service January 27, 2019 Assessment & Plan (1) Infection of right hand: Continue IV vancomycin at this time. Continue wound VAC Dr. Wang's input appreciated and he will decide final antibiotic choice and duration. Plan for wound VAC change tomorrow. Subjective Postop day 1 status post Incision and Drainage right hand and application of wound vac Patient is currently sitting up in his chair at the bedside. Right hand is elevated on a few pillows. Wound VAC is on and functioning. There is a small amount of drainage noted in the canister. Patient has no overt complaints at this time. He was having pain earlier but was given IV Dilaudid and is doing better. We discussed that his culture came back MRSA. Physical Exam Physical Exam: Dressing is clean, dry, intact. He is able to move all 4 fingers. Capillary refill is less than 2 seconds. He has numbness and tingling in the fingers at this time. Results & Data Vital Signs (Past 12 Hours) Vital Signs Temp Pulse Resp BP Pulse Ox 01/27/19 06:54 36.6 C 85 18 106/62 95 01/27/19 01:59 37.5 C 84 16 117/70 95 Laboratory Results Microbiology 01/25/19 20:20 Hand,Right Gram Stain - Final 01/25/19 20:20 Hand,Right Wound Culture - Final Staph aureus MRSA 01/26/19 Unknown Hand,Right Gram Stain - Final 01/26/19 Unknown Hand,Right Aerobic and Anaerobic Culture - Preliminary Staphylococcus aureus Sensitivity results indicate a Methicillin-Resistant Staph aureus. Phoned to REBECCA MONTGOMERY on 01/27/19 at 0909 by Lana Holden. Results were verbalized back. MRSA RX M.I.C. --- --------- Clindamycin S <=0.5 Daptomycin S <=0.5 Erythromycin R >4 Oxacillin R >2 Rifampin S <=1 Tetracycline S <=4 Trimeth/Sulfa S <=0.5/9.5 Vancomycin S 1 S = SENSITIVE I = INTERMEDIATE R = RESISTANT
[2019-01-27] MEDS: NSS + 20MEQ KCL 20 MEQ/1,000 ML BAG IV SCH (11:59)
[2019-01-27] MEDS ORDERED: ONDANSETRON INJ 2 MG/ML 2 ML VIAL IV STA (13:30)
[2019-01-27] MEDS ORDERED: ONDANSETRON INJ 2 MG/ML 2 ML VIAL ONE (13:33)
[2019-01-27] MEDS ORDERED: INSULIN GLARGINE SOLOSTAR 100 UNITS/ML 3 ML PEN SC SCH (14:00)
--- NOTE | 2019-01-27 15:05 | Hospitalist Progress Note ---
Date of Service January 27, 2019 Assessment & Plan (1) Wound infection: Had a ray amputation of his right 4th finger on 01/19 at [facility]. Done due to issues with Dupuytren's contractures. Post-op wound infection of right hand and arm. - Sutures opened with culture performed by Dr. Haddad in the ED - I&D on 01/26 - Continue vancomycin IV - Zosyn stopped on 01/26 for Staph aureus in the wound - Follow wound culture and sensitivity - Pain and fever control (2) Cellulitis of arm, right: - See above. (3) Sepsis: On admission, he had SIRS 2/4 with known source. - Resolved on abx therapy (4) Diabetes mellitus type 1: A1c was 10.5% on admission. On admission, evening Lantus 42 units was held; however, as a Type 1 diabetic, he has to have long-acting to prevent ketoacidosis. - Placed on insulin gtt on 01/26 as he is NPO, blood sugars are getting out of control, and we are worried about complications. - Transitioned to basal insulin with sliding scale insulin after surgery - Glycemic consult following (5) GERD (gastroesophageal reflux disease): - Placed on pantoprazole 40 mg IV daily. (6) DVT prophylaxis: SCDs Subjective With hand pain and annoyed by the wound vac, but otherwise well. Reports no fevers/chills, chest pain, shortness of breath, abdominal pain, nausea, or vomiting. Review of Systems Constitutional: no fever, no chills and no sweats Eyes: no diplopia Ear, Nose, Mouth, Throat: no ear trauma, no nasal discharge and no dental pain Respiratory: no cough, no chest congestion and no dyspnea Cardiovascular: no chest pain, no dyspnea on exertion, no palpitations and no syncope Gastrointestinal: no abdominal pain, no belching, no constipation, no diarrhea/loose stools, no blood in stools and no melena Musculoskeletal: + joint pain (Hand); no back pain and no muscle weakness Integumentary: no rash, no skin ulcer and no erythema Neurologic: no generalized weakness, no loss of sensation, no numbness and no paresthesia Psychiatric: no depression and no anxiety Endocrine: no fatigue, no polydipsia and no polyphagia Physical Exam Constitutional: WD/WN, vitals as above Eyes: EOM intact bilaterally; no conjunctival abnormality ENMT: external ear and nose normal, oropharynx normal Neck: trachea midline, no thyromegaly normal visual inspection Respiratory: normal respiratory effort, lungs clear to auscultation no respiratory distress Cardiovascular: RRR, no murmur, no edema Gastrointestinal (Abdomen): Inspection/Auscultation: abdomen normal to inspection; abdomen not distended Musculoskeletal: no cyanosis or clubbing, extremities motor strength 5/5 Neurologic: moves all extremities and awake Psychiatric: Orientation: alert, oriented to person and cooperative Results & Data Vital Signs (Past 12 Hours) Vital Signs Temp Pulse Pulse Resp BP Pulse Ox 01/27/19 12:00 36.8 C 71 17 132/81 100 01/27/19 06:54 36.6 C 85 18 106/62 95 (1) Sepsis Sepsis type: sepsis due to unspecified organism Qualified Code(s): A41.9 - Sepsis, unspecified organism
--- NOTE | 2019-01-27 15:24 | Pharmacy Report ---
Pharmacy Glycemic Short Note 2 - Date of Service January 27, 2019 - Glycemic Short BSG Results (Last 24 hours): 01/26/19 01/26/19 01/26/19 08:01 10:49 10:49 Glucose POC Glucose 238 H 315 H* 315 H* 01/26/19 01/26/19 01/26/19 11:59 12:58 13:59 Glucose POC Glucose 262 H 212 H 181 H 01/26/19 01/26/19 01/26/19 15:35 17:12 18:24 Glucose POC Glucose 119 H 109 H 110 H 01/26/19 01/27/19 01/27/19 20:38 02:22 08:09 Glucose 86 POC Glucose 144 H 108 H 01/27/19 12:23 Glucose POC Glucose 109 H OUTPATIENT ANTIDIABETIC REGIMEN: * Lantus 40 units HS * Humalog CF 30 (BSG>130) insulin:CHO ratio is 1:6 ASSESSMENT: * Patient is a Type 1 diabetic * Placed on insulin gtt on 01/26 because he was NPO and blood sugars were on the rise. Patient's evening dose of lantus was held and drip was started to prevent ketoacidosis. * Transitioned to basal insulin with sliding scale insulin after surgery * Patient has had several sugars below the lower-end of current goal range. Will adjust range to target slightly higher sugars. PLAN FOR INPATIENT GLYCEMIC CONTROL: * Hold outpatient oral diabetes medications * Basal insulin * Lantus 40 units SQ x1 dose today @1320 * slowly moving dosing-time so it matches his home dose, which he takes in the evening * Bolus insulin * NovoLog per scale ACHS or Q6hrs while NPO * Goal Range: Low 120 mg/dL - High 160 mg/dL changed from 110-140 because the patient has had several sugars under goal * Correction Factor: 30 mg/dL/unit * Nutritional / Prandial insulin per carb ratio of 1 unit per 6 grams CHO consumed
[2019-01-27] MEDS ORDERED: VANCOMYCIN HCL 1,500 MG in SODIUM CHLORIDE 0.9% 250 ML IV SCH (17:00)
[2019-01-27] MEDS ORDERED: OXYCODONE/ACETAMINOPHEN 5mg/325mg TAB PO PRN (17:19)
[2019-01-27] MEDS ORDERED: ONDANSETRON INJ 2 MG/ML 2 ML VIAL IV PRN (17:30)
[2019-01-27] MEDS: POT PHOSPHATE MONOBASIC W/ SOD TAB PO SCH ×2 (17:38→20:39)
[2019-01-27] MEDS: VANCOMYCIN HCL 1,500 MG in SODIUM CHLORIDE 0.9% 500 ML IV SCH ×2 (17:38→23:58)
[2019-01-28] MEDS ORDERED: VANCOMYCIN TROUGH ONE (06:30)
[2019-01-28 07:01] LABS: Hematocrit (blood only) 35.8 % (42-52); Hemoglobin 11.7 g/dL (14.0-18.0); Mean Corpuscular Hgb Conc 32.7 g/dL (32-36); Mean Corpuscular Volume 83.8 fL (80-100); Mean Platelet Volume 9.8 fL (7.4-10.4); Platelet Count 399 K/uL (130-400); RDW Coefficient of Variation 13.9 % (11.5-14.5); RDW Standard Deviation 42.6 fL (36.4-46.3); Red Blood Count 4.27 M/uL (4.7-6.1); White Blood Count 14.25 K/uL (4.8-10.8)
[2019-01-28] MEDS: VANCOMYCIN HCL 1,500 MG in SODIUM CHLORIDE 0.9% 500 ML IV SCH ×2 (07:04→13:57)
[2019-01-28 07:33] LABS: BUN Creatinine Ratio 9.7 (10-20); Calcium 8.6 mg/dl (8.5-10.1); Creatinine Clr Calc Pharmacy 163.8 ml/min; Est GFR (African American) 146.7; Est GFR (Non-African American) 126.6; Magnesium 2.3 mg/dl (1.8-2.4); Potassium 3.4 mmol/L (3.5-5.1)
[2019-01-28] MEDS: CARBOHYDRATES FOR HYPOGLYCEMIA PO PRN ×2 (07:35→07:50)
[2019-01-28 07:53] LABS: Phosphorus 3.5 mg/dl (2.5-4.9)
[2019-01-28] MEDS: GLUCOSE 10 TABS/TUBE PO PRN ×3 (08:05→08:39)
[2019-01-28] MEDS: HYDROmorphone INJ 1 MG/ML SYRINGE IV PRN (08:47)
[2019-01-28] MEDS: INSULIN ASPART 100 UNITS/ML 3 ML PEN SC SCH ×2 (09:12→13:09)
--- NOTE | 2019-01-28 09:30 | Orthopedic Progress Note ---
Date of Service January 28, 2019 Assessment & Plan (1) Infection of right hand: Continue IV vancomycin at this time. Wound vac will be replaced to be changed every [address] Wang's input appreciated and he will decide final antibiotic choice and duration. Subjective Patient is postop day 2 status post I&D right hand. Wound care nursing is present and removing the current wound VAC. Patient is remaining mostly comfortable with pain off and on at times. No new complaints at this time. Physical Exam Physical Exam: Wound VAC was removed per wound care nurse. He still has some mild swelling of the dorsum of the hand and somewhat into the fingers. The open wound itself has a good edge with no overt purulence noted. The depth of the wound measures over 0.5 cm. He has no overt drainage from the wound once the wound VAC was removed. Patient states that his hand was purple when he came in which has now resolved. He does have some mild erythema noted. Results & Data Vital Signs (Past 12 Hours) Vital Signs Temp Pulse Resp BP Pulse Ox 01/28/19 07:37 36.9 C 81 16 133/81 100 01/27/19 22:51 37.4 C 85 16 115/71 93
[2019-01-28] MEDS ORDERED: HYDROmorphone INJ 1 MG/ML SYRINGE IV STA (09:35)
[2019-01-28] MEDS: POT PHOSPHATE MONOBASIC W/ SOD TAB PO SCH ×3 (09:46→17:41)
--- NOTE | 2019-01-28 09:58 | Pharmacy Report ---
Pharmacy Abx Dose Short Note - Date of Service January 28, 2019 - Assessment & Plan Assessment 28 year old M receiving Vanc/Zosyn for treatment of sepsis 2nd post-op wound infection/cellulitis with MRSA - with wound vac Day # 4 of antimicrobial therapy - ID consulted to follow patient Plan Vancomycin * Trough level came back therapeutic at ~16 mcg/ml (goal 15-20 mcg/ml) * Will continue same regimen of vancomycin 1500 mg iv q 7 hrs * Renal function remains stable: CrCl >100 ml/min * Will plan to recheck trough in 2-3 days or as necessary based upon upon renal changes Pharmacy will continue to follow and will adjust dose/frequency as necessary. Thank you.
[2019-01-28 10:58] LABS: Albumin Level 2.6 gm/dl (3.4-5.0); Prealbumin 10.3 mg/dl (20-40)
[2019-01-28 11:30] LABS: Estimated Average Glucose 255 mg/dl; Hemoglobin A1C 10.5 % (4.5-5.6)
--- NOTE | 2019-01-28 14:06 | Pharmacy Report ---
Pharmacy Glycemic Short Note 2 - Date of Service January 28, 2019 - Glycemic Short BSG Results (Last 24 hours): 01/27/19 01/27/19 01/28/19 17:11 20:31 06:46 Glucose 46 L* POC Glucose 144 H 105 H 01/28/19 01/28/19 01/28/19 07:50 08:05 08:20 Glucose POC Glucose 63 L* 55 L* 65 L* 01/28/19 01/28/19 01/28/19 08:35 08:50 08:54 Glucose POC Glucose 63 L* 388 H* 96 01/28/19 12:17 Glucose POC Glucose 204 H OUTPATIENT ANTIDIABETIC REGIMEN: * Lantus 40 units HS * Humalog CF 30 (BSG>130) insulin:CHO ratio is 1:6 ASSESSMENT: 01-28: * Patient received total of 55 units of insulin yesterday, of which 40 units were basal (his home basal is 40 units) * BSG this am very low at 46 mg/dL - treated per hypoglycemia protocol - up to 96 mg/dL (note: 388 mg/dL not accurrate BSG in computer - nurse states patient had sugar on finger when tested) * Low this AM likely attributed to N/V which started yesterday afternoon/evening and continued this morning. Patient's diet likely less than what he typically eats outpatient so insulin will be decreased * Will decrease to Lantus 30 units with dinner which is about ~25% decrease from home dosing in order to hopefully avoid further hypoglycemic episodes. Plan is to move Lantus dosing to bedtime tomorrow which is similar to when he takes it at home * CF/CR - loosened with lunchtime today 01-27: * Patient is a Type 1 diabetic * Placed on insulin gtt on 01/26 because he was NPO and blood sugars were on the rise. Patient's evening dose of lantus was held and drip was started to prevent ketoacidosis. * Transitioned to basal insulin with sliding scale insulin after surgery * Patient has had several sugars below the lower-end of current goal range. Will adjust range to target slightly higher sugars. PLAN FOR INPATIENT GLYCEMIC CONTROL: * Hold outpatient oral diabetes medications * Basal insulin - decrease * Lantus 30 units SQ with dinner * slowly moving dosing-time so it matches his home dose, which he takes in the evening * Bolus insulin - loosen * NovoLog per scale ACHS or Q6hrs while NPO * Goal Range: Low 120 mg/dL - High 160 mg/dL * Correction Factor: 30 mg/dL/unit * Nutritional / Prandial insulin per carb ratio of 1 unit per 10 grams CHO consumed
[2019-01-28] MEDS ORDERED: INSULIN GLARGINE SOLOSTAR 100 UNITS/ML 3 ML PEN SC SCH (16:30)
--- NOTE | 2019-01-28 16:58 | Discharge Summary ---
Date of Service January 28, 2019 Admission HPI Per Admitting Provider The patient is a 28 yo male with a PMH including DM Type I , GERD, and Duputyren's contracture, s/p release x 2 , who underwent a right 4th finger amputation by Dr. Yoder 6 days ago, had been doing well until this morning, when he developed redness, pain and swelling of his right hand and wrist. He presented to the ED at [facility], was noted to be infected, and was transferred to [facility] at the request of for further treatment. The patient primarily complains of pain, with some nausea at this time. Principal Diagnosis Right soft tissue/surgical site infection; not osteomyelitis or flexor infection Discharge Exam Constitutional WD/WN, vitals as above Eyes EOM intact bilaterally; no conjunctival abnormality ENMT external ear and nose normal, oropharynx normal Neck trachea midline, no thyromegaly normal visual inspection Respiratory normal respiratory effort, lungs clear to auscultation no respiratory distress Cardiovascular RRR, no murmur, no edema Gastrointestinal (Abdomen) Inspection/Auscultation: abdomen normal to inspection; abdomen not distended Musculoskeletal no cyanosis or clubbing, extremities motor strength 5/5 Neurologic moves all extremities and awake Psychiatric Orientation: alert, oriented to person and cooperative Discharge Data Allergies Allergy/AdvReac Type Severity Reaction Status Date / Time No Known Allergies Allergy Verified 01/26/19 14:55 Consultations 01/25/19 19:40 ED Decision to Admit Stat 01/25/19 21:25 Consult Case Management - Discharge Planning Routine 01/26/19 15:52 Consult Infectious Diseases Routine Procedures Performed Operation Date: 01/26/19 14:00 Actual Procedures p Incision and Drainage right hand and application of wound vac (Right) - Pedro Haddad MD Hospital Course (1) Wound infection: Had a ray amputation of his right 4th finger on 01/19 at [facility]. Done due to issues with Dupuytren's contractures. Post-op wound infection of right hand and arm. - Sutures opened with culture performed by Dr. Haddad in the ED - I&D on 01/26 - Was on vancomycin IV in the hospital. - Wound grew MRSA. - Discussed with Dr. Wang - Discharge on Bactrim DS 1 tablet PO BID x 2 weeks - Follow up with Dr. Haddad in the clinic. (2) Cellulitis of arm, right: - See above. (3) Sepsis: On admission, he had SIRS 2/4 with known source. - Resolved on abx therapy (4) Diabetes mellitus type 1: A1c was 10.5% on admission. On admission, evening Lantus 42 units was held; however, as a Type 1 diabetic, he has to have long-acting to prevent ketoacidosis. - Placed on insulin gtt on 01/26 as he is NPO, blood sugars are getting out of control, and we are worried about complications. - Transitioned to basal insulin with sliding scale insulin after surgery - Glycemic consult following = Returned to home dosing on discharge. (5) GERD (gastroesophageal reflux disease): - Placed on pantoprazole 40 mg IV daily. (6) DVT prophylaxis: SCDs Total Time Total Time Spent Total Time Spent (In Minutes): 35 Total Time Includes: Examination of the Patient, Discharge Planning and Medication Reconciliation Discharge Plan Discharge Items Patient Disposition: Home - Home Health Services Reason For Visit: OSTEOMYELITIS OF RIGHT HAND Discharge Diagnosis: Surgical site infection of right hand Discharge Goals: Decrease discomfort and Diagnostic testing Activity: Resume your previous activity Non-emergency contact: Primary Care Provider and Surgeon Call non-emergency contact if: your symptoms worsen, your pain is not controlled and your temperature is above 100.5 Follow-up/Referrals: Dr. Linda Briggs [Other] - 02/03/19 2:00 pm (Please, follow up at [facility] with Dr. Linda Briggs on February 03 at 2:00 pm. *If you need to change this appointment, call the office at [phone].) Pedro Haddad MD [Physician] - (Please see Dr. Haddad next week in his office. Call the office on Thursday morning for an appointment.) Diet: Carb Count or DM1 Addtl Provider Instructions: Mr. Campoverde, You were admitted to the hospital with a right hand infection where you had surgery. Dr. Haddad washed the area out and did not find infection in the bone which is good. We had you on antibiotics in the hospital, and we would like you to continue antibiotics (Bactrim) for several weeks. We would like you to see Dr. Haddad next week to be sure the area is healing well. Take the first dose of antibiotic tonight before bed. Call Dr. Haddad's office with any changes in the right hand including more redness, pus, drainage, or any wound vac issues. Prescriptions: New sulfamethoxazole-trimethoprim [Bactrim DS] 800-160 mg tablet 1 tab PO BID 14 Days Qty: 29 RF: 0 oxycodone-acetaminophen [Percocet] 5-325 mg tablet 1 tab PO Q6H PRN (Reason: pain) Qty: 20 RF: 0 Continued Lantus U-100 Insulin 100 unit/mL Solution 40 unit SUBCUT HS RF: 0 insulin lispro [Humalog U-100 Insulin] 100 unit/mL Solution See Rx Instructions .ROUTE .COMPLEX RF: 0 [place]-3 350 mg-235 mg- 90 mg-597 mg Capsule,Delayed Release(Dr/Ec) 1 cap PO QAM RF: 0 Stand-Alone Forms: Glio, Opioid Pain Management, Work/School Release (Inpt) Krames/Other Patient Handouts: Surgery Prevent DVT After Discharge Orders: Discharge Order (Routine); Ordered 01/28/19 Ordered By: Fermin Oliver Admission Data Admit Date/Time: 01/25/19 19:39 Attending Provider: Fermin Oliver Admit Provider: Ronal Petty Primary Care Provider: Linda Briggs Other Providers: Fermin Oliver ; Ronal Petty ; Leo Wang ; Damaris Orellana Service: Medical Other Interventions: Discharge Summary Assessment (RN) Last Done: 01/28/19 15:36
== END 2019-01-28 18:23 | disposition home health service (06) | DRG 856 ==
LOC: ED 18:27 → 2N 19:39 → SUATTDRO 19:39 → 2N 21:07 → 3E 01-27 01:55